=== PATIENT | female | born 1945 | race Caucasian/White ===

== ENCOUNTER → 2016-06-06 | Outpatient (CLI) | payer MEDICARE | END | disposition home or self-care (01) | LOC: CFH 10:37 | PROVIDERS: ATTEND Family Medicine | DX: Z12.31 Encounter for screening mammogram for malignant neoplasm of breast (principal); Z13.820 Encounter for screening for osteoporosis; M81.0 Age-related osteoporosis without current pathological fracture; M85.89 Other specified disorders of bone density and structure, multiple sites; Z78.0 Asymptomatic menopausal state | CPT/HCPCS: 77080; G0202 ==

== ENCOUNTER → 2017-01-28 | Outpatient (CLI) | payer MEDICARE ==
[~2017-01-28] MED LIST: AMLO5TAB2 PO; ASPI-496 PO; BUPR-86 PO; CALC-192 PO; CHOL10002 PO; EZET10TA18 PO; FENO134C PO; LIDOCAINE 1%, 20ML ONE; LOSA100T6 PO; METF500T4 PO; ROSU20TA PO; SERT100T PO; TRAZ150T62 PO; VIT1CAPS10 PO
== END | disposition home or self-care (01) ==
LOC: CFH 09:33
PROVIDERS: ATTEND Family Medicine
DX: D05.11 Intraductal carcinoma in situ of right breast (principal)
CPT/HCPCS: 19083; 19084; 88305; G0206; J3490

== ENCOUNTER → 2017-03-06 | Outpatient (CLI) | payer MEDICARE ==
[~2017-03-06] MED LIST changes: -LIDOCAINE 1%, 20ML ONE
[2017-03-06 12:01] LABS: BASOPHILS # (AUTO) 0.03 x10^3/uL (0-0.1); BASOPHILS % (AUTO) 1 % (0-1); EOSINOPHILS # (AUTO) 0.09 x10^3/uL (0-0.4); EOSINOPHILS % (AUTO) 1 % (1-7); LYMPHOCYTES # (AUTO) 2.32 x10^3/uL (1-3.4); LYMPHOCYTES % (AUTO) 35 % (22-44); MD NO; MEAN CORPUSCULAR HEMOGLOBIN 27.9 pg (27.0-34.8); MEAN CORPUSCULAR HGB CONC 33.2 g/dL (32.4-35.8); MEAN PLATELET VOLUME 8.4 fL (7.4-10.4); MONOCYTES # (AUTO) 0.47 x10^3/uL (0.2-0.8); MONOCYTES % (AUTO) 7 % (2-9); NEUTROPHILS # (AUTO) 3.76 x10^3/uL (1.8-6.8); NEUTROPHILS % (AUTO) 56 % (42-75); PLATELET COUNT 298 x10^3/uL (130-400); RED BLOOD COUNT 4.75 x10^6/uL (3.82-5.3); RED CELL DISTRIBUTION WIDTH 13.6 % (9.6-15.2)
[2017-03-06 12:13] LABS: ALANINE AMINOTRANSFERASE 48 U/L (12-78); ALBUMIN 4.5 g/dL (3.4-5.0); ANION GAP 6 mmol/L (5-15); CALCIUM 9.9 mg/dL (8.5-10.1); CHLORIDE 109 mmol/L (98-107); CREATININE 0.85 mg/dL (0.55-1.02)
[2017-03-06 12:15] LABS: ALKALINE PHOSPHATASE 46 U/L (45-117); BILIRUBIN,TOTAL 0.3 mg/dL (0.2-1.0)
[2017-03-06 12:18] LABS: INTERNATIONAL NORMALIZED RATIO 0.96 (0.93-1.1)
== END | disposition home or self-care (01) ==
LOC: STAR 10:50
PROVIDERS: ATTEND Surgery
DX: Z01.818 Encounter for other preprocedural examination (principal); R94.31 Abnormal electrocardiogram [ECG] [EKG]
CPT/HCPCS: 36415; 80053; 85025; 85610; 93005

== ENCOUNTER 2017-03-15 05:36 | Observation (INO) | payer MEDICARE ==
[~2017-03-15] VITALS: Ht 162.6 cm; Wt 69.0 kg
[~2017-03-15 05:36] MED LIST changes: -SERT100T PO; +SERT20OR PO
[2017-03-15 06:21] VITALS: BP 111/69
[2017-03-15] MEDS ORDERED: LACTATED RINGERS 1,000 ML IV SCH (06:26)
[2017-03-15] MEDS ORDERED: LIDOCAINE 1%, 2ML ONE (06:29)
[2017-03-15] MEDS ORDERED: LIDOCAINE 1%, 2ML SQ PRN (06:30)
[2017-03-15] MEDS ORDERED: MIDAZOLAM 1 MG/ML, 2ML ONE (06:45)
[2017-03-15] MEDS ORDERED: FENTANYL PF 250 MCG/5ML ONE (06:45)
[2017-03-15] MEDS ORDERED: EPINEPHRINE 1 MG/ML, 1ML ONE (06:58)
[2017-03-15] MEDS ORDERED: BUPIVACAINE/PF 0.5% ONE (06:58)
[2017-03-15] MEDS ORDERED: ISOSULFAN BLUE 10 MG/ML, 5ML IV ONE (06:58)
[2017-03-15] MEDS ORDERED: CEFAZOLIN 1,000 MG ONE ×2 (07:11→08:49)
[2017-03-15] MEDS ORDERED: BACITRACIN 50,000 UNIT ONE (07:12)
[2017-03-15] MEDS ORDERED: GENTAMICIN 80 MG/2 ML ONE (07:12)
[2017-03-15] MEDS ORDERED: METHYLENE BLUE 10 MG/ML 10ML ONE (07:18)
[2017-03-15] MEDS ORDERED: ROCURONIUM 10 MG/ML,10ML ONE (07:29)
[2017-03-15] MEDS ORDERED: BUPIVACAINE/PF-EPI 0.5% 1:200K IM ONE (08:45)
[2017-03-15] MEDS ORDERED: PROPOFOL 10 MG/ML, 20ML ONE (08:48)
[2017-03-15] MEDS ORDERED: DEXAMETHASONE 4 MG/ML, 1ML ONE ×2 (08:49)
[2017-03-15] MEDS ORDERED: ONDANSETRON 2MG/ML, 2ML ONE (08:49)
[2017-03-15] MEDS ORDERED: HYDROmorphone 1 MG/ML, 1ML IV PRN (09:00)
[2017-03-15] MEDS ORDERED: ACETAMINOPHEN 325 MG TABLET PO PRN (09:00)
[2017-03-15] MEDS ORDERED: PROMETHAZINE 25 MG/ML, 1ML IV PRN (09:00)
[2017-03-15] MEDS ORDERED: LABETALOL 5MG/ML, 20ML IV PRN (09:00)
[2017-03-15] MEDS ORDERED: ONDANSETRON 2MG/ML, 2ML IVPush PRN ×2 (09:00→12:30)
[2017-03-15] MEDS ORDERED: hydrALAzine 20 MG/ML, 1ML IV PRN (09:00)
[2017-03-15] MEDS ORDERED: FENTANYL PF 100 MCG/2ML ONE ×2 (09:36→10:29)
[2017-03-15] MEDS ORDERED: ACETAMINOPHEN 325 MG TABLET ONE (09:36)
[2017-03-15] MEDS ORDERED: ACETAMINOPHEN 650 MG/20.3 ML UDC ONE (09:36)
[2017-03-15] MEDS ORDERED: OXYcodone 5 MG/5 ML ORAL.SOL UDC ONE ×2 (09:36→10:29)
[2017-03-15] MEDS: OXYcodone 5 MG/5 ML ORAL.SOL UDC PO PRN ×2 (09:38→10:32)
[2017-03-15] MEDS: FENTANYL PF 100 MCG/2ML IV PRN ×5 (09:41→10:32)
[2017-03-15] MEDS ORDERED: MORPHINE SULFATE 4 MG/ML, 1ML IVPush PRN (12:30)
[2017-03-15] MEDS ORDERED: DIPHENHYDRAMINE 50 MG/ML, 1ML IVPush PRN (12:30)
[2017-03-15] MEDS ORDERED: LABETALOL 5MG/ML, 20ML IVPush PRN (12:30)
[2017-03-15 13:15] VITALS: BP 140/66
[2017-03-15] MEDS: HYDROcodone/APAP 7.5-325MG/15ML UDC PO PRN ×4 (13:50→23:35)
[2017-03-15] MEDS: LACTATED RINGERS 1,000 ML IV SCH (16:00)
[2017-03-15] MEDS: INSULIN REGULAR, HUMAN 100 UNIT/ML 3ML VIAL SS SQ SCH ×2 (16:00→21:13)
[2017-03-15 20:12] VITALS: BP 122/63
[2017-03-15] MEDS ORDERED: ATORVASTATIN 40 MG TABLET PO SCH (21:00)
[2017-03-15] MEDS ORDERED: TRAZODONE 50MG TABLET PO SCH (22:39)
[2017-03-16] VITALS: BP 136/76
[2017-03-16] MEDS: LACTATED RINGERS 1,000 ML IV SCH (02:00)
[2017-03-16] MEDS: HYDROcodone/APAP 7.5-325MG/15ML UDC PO PRN ×2 (03:42→07:57)
[2017-03-16] MEDS: INSULIN REGULAR, HUMAN 100 UNIT/ML 3ML VIAL SS SQ SCH ×2 (04:03→10:00)
[2017-03-16 04:24] VITALS: BP 134/66
[2017-03-16] MEDS ORDERED: ASPIRIN 81 MG TABLET EC PO SCH (06:00)
[2017-03-16 07:18] VITALS: BP 135/70
[2017-03-16] MEDS ORDERED: metFORMIN 500 MG TABLET PO SCH (09:00)
[2017-03-16] MEDS ORDERED: CALCIUM/VITAMIN D3 250-125 TABLET PO SCH (09:00)
[2017-03-16] MEDS ORDERED: WELLBUTRIN 150 MG HOMEMEDPO SCH (09:00)
[2017-03-16] MEDS ORDERED: LOSARTAN 50MG TABLET PO SCH (09:00)
[2017-03-16] MEDS ORDERED: FENOFIBRATE 145 MG TABLET PO SCH (09:00)
[2017-03-16] MEDS ORDERED: CHOLECALCIFEROL 1,000 UNIT TABLET PO SCH (09:00)
[2017-03-16] MEDS ORDERED: AMLODIPINE 5 MG TABLET PO SCH (09:00)
[2017-03-16] MEDS ORDERED: EZETIMIBE 10 MG TABLET PO SCH (09:00)
[2017-03-16] MEDS ORDERED: TRAZODONE 50MG TABLET PO SCH (09:00)
[2017-03-16] MEDS ORDERED: SERTRALINE 100MG TABLET PO SCH (09:00)
[2017-03-16 10:45] VITALS: BP 123/67
== END 2017-03-16 11:06 | disposition home or self-care (01) ==
LOC: OUT 05:36 → 4NOR 11:45 → OUT 12:16
PROVIDERS: ADMIT Surgery; ATTEND Surgery
DX: D05.11 Intraductal carcinoma in situ of right breast (principal); I10 Essential (primary) hypertension; E78.00 Pure hypercholesterolemia, unspecified; F32.9 Major depressive disorder, single episode, unspecified
CPT/HCPCS: 15777; 19357; 82962; 88307; 88341; 88342; 88360; 96374; C1729; C1762; G0378; J0171; J0690; J1100; J1580; J2250; J2405; J2704; J3010; J3490; J7120; Q9968; G0461

== ENCOUNTER → 2017-07-15 | Outpatient (CLI) | payer MEDICARE ==
[~2017-07-15] MED LIST changes: +LOSA1TAB25 PO; +SERT100T PO; -SERT20OR PO
[2017-07-15 14:17] LABS: BASOPHILS # (AUTO) 0.03 x10^3/uL (0-0.1); BASOPHILS % (AUTO) 1 % (0-1); EOSINOPHILS % (AUTO) 2 % (1-7); LYMPHOCYTES # (AUTO) 2.32 x10^3/uL (1-3.4); LYMPHOCYTES % (AUTO) 37 % (22-44); MD NO; MEAN CORPUSCULAR HGB CONC 33.5 g/dL (32.4-35.8); MEAN CORPUSCULAR VOLUME 83.4 fL (80-100); MEAN PLATELET VOLUME 8.5 fL (7.4-10.4); MONOCYTES # (AUTO) 0.48 x10^3/uL (0.2-0.8); MONOCYTES % (AUTO) 8 % (2-9); NEUTROPHILS # (AUTO) 3.33 x10^3/uL (1.8-6.8); NEUTROPHILS % (AUTO) 53 % (42-75); PLATELET COUNT 317 x10^3/uL (130-400); RED BLOOD COUNT 4.78 x10^6/uL (3.82-5.3)
[2017-07-15 14:23] LABS: ALBUMIN 4.6 g/dL (3.4-5.0); ANION GAP 10 mmol/L (5-15); CALCIUM 10.9 mg/dL (8.5-10.1); CHLORIDE 107 mmol/L (98-107)
[2017-07-15 14:26] LABS: CREATININE 0.85 mg/dL (0.55-1.02)
[2017-07-15 14:27] LABS: ALANINE AMINOTRANSFERASE 42 U/L (12-78); ALKALINE PHOSPHATASE 52 U/L (45-117); BILIRUBIN,TOTAL 0.7 mg/dL (0.2-1.0); TOTAL PROTEIN 8.2 g/dL (6.4-8.2)
== END ==
LOC: STAR 13:05
PROVIDERS: ATTEND Plastic Surgery
DX: Z01.818 Encounter for other preprocedural examination (principal); D05.11 Intraductal carcinoma in situ of right breast; Z85.3 Personal history of malignant neoplasm of breast
CPT/HCPCS: 36415; 80053; 85025; 93005

== ENCOUNTER 2018-03-31 13:22 | Outpatient (CLI) | payer MEDICARE ==
[~2018-03-31 13:22] MED LIST changes: +AMLO-150 PO; -AMLO5TAB2 PO; +LOSA100T14 PO; -LOSA100T6 PO; +METF500T17 PO; -METF500T4 PO; +OCUVITE SOFTGE1 EACH PO; -ROSU20TA PO; +ROSU20TA2 PO; -VIT1CAPS10 PO
== END 2018-03-31 23:59 | disposition home or self-care (01) ==
LOC: CFH 13:22
PROVIDERS: ATTEND Surgery
DX: R92.2 Inconclusive mammogram (principal); Z85.3 Personal history of malignant neoplasm of breast
CPT/HCPCS: 77065; G0279; 77063

== ENCOUNTER → 2019-08-11 | Outpatient (CLI) | payer MEDICARE ==
[~2019-08-11] MED LIST changes: -EZET10TA18 PO; +EZET10TA70 PO
== END | disposition home or self-care (01) ==
LOC: CFH 10:33
PROVIDERS: ATTEND Surgery
DX: Z12.31 Encounter for screening mammogram for malignant neoplasm of breast (principal)
CPT/HCPCS: 77063; 77067

== ENCOUNTER 2019-08-24 08:28 | Outpatient (CLI) | payer MEDICARE | END 2019-08-24 23:59 | disposition home or self-care (01) | LOC: CFH 08:28 | PROVIDERS: ATTEND Surgery | DX: Z85.3 Personal history of malignant neoplasm of breast (principal); Z90.11 Acquired absence of right breast and nipple | CPT/HCPCS: 76642; 77065 ==

== ENCOUNTER 2019-09-09 08:20 | Outpatient (CLI) | payer MEDICARE | END 2019-09-09 23:59 | disposition home or self-care (01) | LOC: CFH 08:20 | PROVIDERS: ATTEND Surgery | DX: N64.89 Other specified disorders of breast (principal); Z90.11 Acquired absence of right breast and nipple | CPT/HCPCS: 19081 ==

== ENCOUNTER → 2020-03-10 | Outpatient (CLI) | payer MEDICARE | END | disposition home or self-care (01) | LOC: CFH 14:19 | PROVIDERS: ATTEND Surgery | DX: R92.8 Other abnormal and inconclusive findings on diagnostic imaging of breast (principal) | CPT/HCPCS: 77061; 77065; G0279 ==